=== PATIENT | female | born 1950 | race Caucasian/White ===

== ENCOUNTER 2025-11-11 11:43 | Emergency (ER) | payer BC ==
[~2025-11-11] VITALS: Ht 154.9 cm; Wt 75.3 kg
[2025-11-11 11:49] VITALS: BP 194/90; PULSE 94; RESP 18; TEMP 97.4; O2SAT 97
--- NOTE | 2025-11-11 12:09 | Physician Documentation ---
History of Present Illness ~ Chief Complaint: Bite-animal Stated Complaint: ANIMAL BITE Time Seen by MD: 11:52 Source: patient Mode of Arrival: POV Exam Limitations: no limitations HPI 75-year-old female with right hand swelling and small puncture wounds from her own cat who was playing with her hand with possible infection needing a ntibiotics Medication Reconciliation Allergies: Coded Allergies: No Known Allergies (Unverified , 11/11/25) Past Medical History Past Medical History: No Pertinent History Past Surgical History: noncontributory Lives with: Family Lives In: Home Occupation: retired Review of Systems All Other Systems at this time: Reviewed and Negative Integumentary: Reports: see HPI Physical Exam Vital Signs: RN Vital Signs have been reviewed: Yes, Temperature: 97.4, Source: Temporal, Heart Rate: 94, Respiratory Rate: 18, BP: 194/90, Pulse Oximetry: 97, Weight: 75.300 Oxygen Flow Rate: 0 Physical Exam General: Alert, no apparent distress. HEENT: moist mucous membranes. Neck: Full range of motion. Respiratory: No respiratory distress speaking in full sentences Chest: No accessory muscle use. Cardiovascular: Appears well perfused Neurologic: Oriented x4. Psychiatric: Normal mood and affect. Skin: Puncture wound scabbed moderate swelling to the dorsal aspect of the right hand CMS intact Progress Results/Orders Results/Orders Vital Signs 11/11/25 11:49 Temp 97.4 Pulse 94 Resp 18 B/P (MAP) 194/90 Pulse Ox 97 O2 Flow Rate 0 Medical Decision Making Additional information obtaine: N/A Findings To right hand with moderate swelling CMS intact no lymphangitis Differential Dx:Considerations: Include: Other Departure Time of Disposition: 12:09 Disposition: 01 HOME / SELF CARE / HOMELESS Impression: Primary Impression: Cat bite Condition: Stable Discharge Instructions: Animal Bite, Adult Additional Instructions: Take antibiotics as prescribed follow up with primary care as needed Referrals: NO PRIMARY CARE PROVIDER (PCP) Prescriptions Amox Tr/Potassium Clavulanate (Augmentin 875-125 Tablet) 1 Each Tablet 1 TAB PO Q12H for 7 Days, #14 TAB Prov: MARIBEL TORRES NP 11/11/25 Education Educated: Patient Educated regarding: diagnosis, treatment, need for follow up Signature Scribe Signature: No scribe Attestation: The note accurately reflects work and decisions made by me.Maribel VIEIRA 11/11/25 12:10 MARIBEL TORRES NP Nov 11, 2025 12:09
[2025-11-11] MEDS ORDERED: AMOX-117 PO (12:10)
== END 2025-11-11 12:21 | disposition home or self-care (01) ==
LOC: ER 11:45
DX: S61.431A Puncture wound without foreign body of right hand, initial encounter (principal); W55.01XA Bitten by cat, initial encounter; Y93.89 Activity, other specified; Y92.89 Other specified places as the place of occurrence of the external cause; Y99.8 Other external cause status
CPT/HCPCS: 99283